=== PATIENT | male | born 1980 | race African-American/Black ===

== ENCOUNTER 2017-04-19 13:54 | Emergency (ER) | payer SELFPAY ==
[~2017-04-19 13:54] MED LIST: AUGM875T PO; FLON0.053; MEDR4PAK3 PO; Z.0.NO CURRENT MEDS
[2017-04-19 13:58] VITALS: BP 139/92; PULSE 115; RESP 19; TEMP 98.6; O2SAT 98
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
== END 2017-04-19 17:12 | disposition home or self-care (01) ==
LOC: NEPD 13:54
DX: R07.9 Chest pain, unspecified (principal)
CPT/HCPCS: 71010; 99283

== ENCOUNTER 2017-06-28 13:29 | Emergency (ER) | payer SELFPAY ==
[~2017-06-28] VITALS: Ht 180.3 cm; Wt 66.8 kg
[2017-06-28 13:30] VITALS: BP 148/96; PULSE 109; RESP 18; TEMP 98.9; O2SAT 100
[2017-06-28] MEDS ORDERED: DICL75TA PO ×2 (14:08→14:48)
[2017-06-28] MEDS ORDERED: TRAM50TA PO ×2 (14:08→14:48)
[2017-06-28] MEDS ORDERED: ACETAMINOPHEN/HYDROcodone 325 MG/5 MG TAB PO ONE (14:15)
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
--- NOTE | 2017-06-28 15:27 | RADRPT ---
EXAM DATE/TIME: 06/28/2017 14:20 [facility] COMPARISON: CHEST SINGLE AP, April 19, 2017, 14:56. INDICATIONS : Chest pains. MEDICAL HISTORY : None. SURGICAL HISTORY : None. ENCOUNTER: Initial ACUITY: 3 weeks PAIN SCORE: 9/10 LOCATION: Bilateral chest FINDINGS: PA and lateral views of the chest demonstrate the lungs to be symmetrically aerated without evidence of mass, infiltrate or effusion. The cardiomediastinal contours are unremarkable. Osseous structure s are intact. CONCLUSION: 1. No acute cardiopulmonary disease. Nikolai Chamorro MD on June 28, 2017 at 15:24 Board Certified Radiologist. This report was verified electronically.
== END 2017-06-28 15:05 | disposition home or self-care (01) ==
LOC: NEPK 13:29
DX: R07.89 Other chest pain (principal); Z72.0 Tobacco use
CPT/HCPCS: 71046; 99283